=== PATIENT | male | born 1985 | race Caucasian/White ===

== ENCOUNTER 2019-08-02 13:06 | Inpatient (IN) | payer MEDICAID, SELFPAY ==
[2019-08-02] VITALS (14 sets, daily range): BP systolic 117–147; BP diastolic 59–80; PULSE 84–111; RESP 14–57; TEMP 37.1–39.2; O2SAT 90–98; BMI 32.5; BMI 32.6; BMI 32.2
--- NOTE | 2019-08-02 13:31 | EKG12_ITS ---
Test Reason : Blood Pressure : / mmHG Vent. Rate : 082 BPM Atrial Rate : 082 BPM P-R Int : 146 ms QRS Dur : 094 ms QT Int : 366 ms P-R-T Axes : 017 -08 031 degrees QTc Int : 427 ms Normal sinus rhythm Minimal voltage criteria for LVH, may be normal variant Borderline ECG Confirmed by COLIN ALLRED ([id number]), rewrite editor TASHA PITTS ([id number] on 08/06/2019 3:45:31 PM Referred By: TAYLOR Confirmed By:COLIN ALLRED
--- NOTE | 2019-08-02 13:35 | NURSING ---
NO OLD EKGS
[2019-08-02] MEDS: Ketorolac 30 MG/ML Syringe IV (13:45)
[2019-08-02] MEDS: 0.9% Normal Saline 1,000 ML 1000 ML IV (13:45)
[2019-08-02 13:54] LABS: Absolute Neutrophil Count 11.6 X10^3/uL (2.0-7.7); Basophil# 0.07 X10^3/uL; Basophil% 0.5 % (0-1); Eosinophil# 0.01 X10^3/uL; Eosinophils% 0.1 % (0-5); Hematocrit 40.5 % (40-54); Hemoglobin 13.3 g/dL (13.0-16.5); Mean Corp Hgb Conc 32.8 g/dL (32-36); Mean Corpuscular Hgb 30.1 pg (27.0-32.0); Mean Corpuscular Volume 91.6 fL (80-94); Mean Platelet Vol. 8.4 fl (6.2-12.0); Monocyte% 10.7 % (0-10); NRBC Flagged by Analyzer 0 % (0-5); Neutrophil % 77.7 % (47-70); POSITIVE DIFFERENTIAL YES; Platelet Count 428 K/mm3 (150-450); RBC Distribution Width CV 12.8 % (11.6-14.6); RBC Distribution Width SD 43.3 fl (35.1-43.9); Red Blood Count 4.42 M/mm3 (4.6-6.2); White Blood Count 14.9 K/mm3 (4.4-11.0)
[2019-08-02 13:56] LABS: Differential Indicated SCAN CRITERIA MET
--- NOTE | 2019-08-02 14:05 | RAD_ITS ---
STUDY: X-RAY CHEST REASON FOR EXAM: Male, 34 years old. SOB, COUGH, CHILLS, PAIN WITH COUGH X3 DAYS TECHNIQUE: PA and lateral views of the chest. COMPARISON: None. FINDINGS: Limited inspiratory effort. Increased markings at both lung bases suggestive of bibasilar atelectasis and possible infiltrate in the posterior medial segment of the left lower lobe. Follow-up is recommended. There is blunting of the left costophrenic angle. Normal size heart. Normal mediastinum and ciaran. Normal visualized pulmonary arteries. Normal visualized aortic arch and descending thoracic aorta. Normal visualized thoracic spine. Normal visualized ribs, clavicles, and shoulders. There is no demonstrated abnormality of the visualized soft tissue structures of the upper abdomen. RAD/Chest PA and Lateral IMPRESSION: Increased markings at the lung bases worse at the left lung base with the focal left lower lobe infiltrate in the posterior medial segment. Blunting of the left costophrenic angle. Follow-up is recommended. Electronically Signed: Maximo Pierre, at 14:23 EST , Service support ,
[2019-08-02 14:08] LABS: Anion Gap 6 (5-15); BUN 9 mg/dL (7-18); BUN/Creat Ratio 12.1 RATIO (10-20); Calcium,Total 9.3 mg/dL (8.5-10.1); Chloride 103 mmol/L (98-107); Creatinine, Serum 0.74 mg/dL (0.70-1.30); EST Glomerular Filtration Rate 130 mL/min (>60); Est Glom Filt Rate - Afr Amer 157 mL/min (>60); Estimated Creatinine Clearance 147.97 ml/min; Glucose 106 mg/dL (74-106); Potassium 3.9 mmol/L (3.5-5.1); Sodium Level 137 mmol/L (136-145)
--- NOTE | 2019-08-02 14:08 | ED.VIS.GEN ---
History of Present Illness Chief Complaint: Shortness of Breath Informant: Patient Narrative: Patient presents the emergency room with right upper back pain and shortness of breath. His mom tells me that she saw him on Tuesday and felt that he looked ill. He states that he has had some pain in his chest that seems to move around from the left upper chest to the right upper chest and is now currently in the right posterior upper thorax. He has had some of cough. He feels short of breath because he cannot take a deep breath in. He notes chills. He has not taken his temperature. He is also not taken anything to mask a fever. No rashes. No vomiting or diarrhea. He does however state that he does not feel much like eating today and appears to be a poor historian is difficult to elucidate out a specific timeline of events/illness. Past Medical History - Allergies and Home Meds Allergies/Adverse Reactions: Allergies No Known Allergies Allergy (Verified 08/02/19 13:07) Smoking Status: Current every day smoker Review of Systems General: Reports: Chills, Malaise. Denies: Fever, Sweats Eyes: Denies: Visual changes - bilaterally, Diplopia ENT: Denies: Left ear pain, Right ear pain, Rhinorrhea, Sore throat Cardiovascular: Reports: Chest pain. Denies: Palpitations Respiratory: Reports: Dyspnea, Cough. Denies: Dyspnea on exertion Gastrointestinal: Denies: Abdominal pain, Nausea, Vomiting, Diarrhea, Melena, Hematochezia Genitourinary: Denies: Dysuria, Hematuria, Frequency Musculoskeletal: Reports: Back pain. Denies: Extremity Pain Skin: Denies: Rash, Wounds Neurological: Denies: Headache, Weakness, Numbness Physical Exam Vital Signs/Narrative: Vital Signs Temp Pulse Resp BP Pulse Ox 08/02/19 13:21 88 30 H 97 08/02/19 13:07 98.7 F 89 19 H 147/74 H 97 Inital Vital Signs reviewed: Yes General: Well nourished, Well developed, Unkempt, No Acute Distress Head: Normocephalic, Atraumatic Eyes: Perrl, EOMI ENT: Moist mucous membranes, Nasal congestion Neck: Supple, Nontender Cardiovascular: Regular rate, Regular rhythm, No murmurs Respiratory: No distress, CTA bilaterally, Chest nontender, - - Patient is breathing shallow and slightly fast but is not in distress Abdomen: Soft, Nontender, Nondistended, Normal bowel sounds Back: Normal Inspection, - - Tender to palpation in the upper right posterior ribs Extremities: Nontender, No edema Skin: Normal color, No rash Neurological: Alert, Oriented x3, Cranial nerves II-XII grossly intact, Normal Strength, Normal Sensation Psychological: - - Patient has a blunted affect Diagnostic/Tx/Re-eval - Rhythm Strip Rhythm Strip: Sinus Rhythm Rate: 96 Ectopy: PAC(s) - Medical Decision Making The vancomycin based on patient's white count was 14.5. EKG is a sinus rhythm at a rate of 82. Lactic acid was normal. Troponin negative. Chest x-ray is concerning for infiltrate. Based on his symptoms is concerned possibly about a pulmonary embolism. CT angios the chest was obtained which demonstrates bilateral pulmonary embolisms and bilateral pneumonia. Patient received additional fluids breathing treatment Toradol morphine Rocephin azithromycin and Eliquis. Her plan is admission to the hospital ED Disposition - Plan for ED Patient: Disposition: Acute Care Hospital [facility] Diagnosis: Bilateral pneumonia, Bilateral pulmonary embolism
--- NOTE | 2019-08-02 14:26 | CT_ITS ---
STUDY: CTA CHEST REASON FOR EXAM: Male, 34 years old. SHORT OF BREATH,COUGH,CHILLS,PAIN W/ COUGH RADIATION DOSAGE (If Supplied By Facility): CTDIvol = ( 14.98 ) mGy, DLP = ( 400.12 ) mGycm TECHNIQUE: The examination was performed with the intravenous administration of 100CC ISOVUE 370. Post-processing of the angiographic images was performed, with multiplanar reformation and 3D reconstruction. Individualized dose optimization techniques were used for this CT. COMPARISON: Comparison is made with prior chest radiograph done earlier in the day. FINDINGS: Intraluminal filling defects are seen in branches of the right and left upper lobe pulmonary arteries more prominent on the right side. This is in keeping with bilateral pulmonary emboli. Normal thoracic aorta and visualized great vessels. There is no demonstrated aortic dissection. Normal heart and pericardium. Normal mediastinum. Mildly enlarged right hilar lymph nodes. Normal visualized trachea and bronchi. The lungs are well expanded. Minimal bilateral pleural effusions with bibasilar infiltrations more prominent on the left side. Normal pleura. Normal chest wall structures. Normal osseous structures. Normal visualized upper abdomen. CT/CTA Chest W/WO Contrast IMPRESSION: Bilateral upper lobe pulmonary arterial emboli more prominent on the right side. Bibasilar infiltrates more prominent on the left side. Electronically Signed: Maximo Pierre, at 15:28 EST , Service support ,
[2019-08-02] MEDS: Ceftriaxone 1 GM/50 ML BAG IV (15:48)
--- NOTE | 2019-08-02 15:53 | HP.PCM_ITS ---
History of Present Illness Date of Admission: 08/02/19 Chief Complaint: shortness of breath, chest pain The patient is a 34 year old M with no significant past medical history. He was admitted through the ED on 08/02/2019 with a complaint of shortness of breath and chest pain for 3 days prior to admission. Shortness of breath was mainly pleuritic and chest pain was worsened by breathing in and out. He denied any fever or chills and had a cough which was initially productive but was now dry. He is never had such chest pain before. He denied any nausea vomiting or diarrhea or any history of long distance travel or history of PE. He denied any history of respiratory symptoms. In the ED, vitals were significant for respiratory rate of 24 with temperature of 99.5 Fahrenheit, pulse rate of 96 and blood pressure of 121/77. Chemistry was unremarkable initial troponin was negative. CBC showed WBC of 14.9 and hemoglobin of 13.3. CT of the chest done in the ED showed bilateral upper lobe pulmonary arterial emboli more prominent on the right side and bibasilar infiltrates more right than on the left. Chest x-ray done just showed increased markings of the lung base worse at the left lung base than the right with a focal left lower lobe infiltrate in the posterior medial segment. He has been admitted to be managed for community- acquired pneumonia and bilateral PE. On closer questioning of patient and his mother, mother stated that she had 2 spontaneous early abortions when she was younger. Her sister and niece also had early spontaneous abortions. Mother also stated that patient's maternal grandmother, and maternal aunts had DVTs and PEs which they thought then were due to cancer. [] Past Medical History Allergies No Known Allergies Allergy (Verified 08/02/19 13:07) Home Medications: Ambulatory Orders Medication Instructions Recorded NK 08/02/19 Surgical History: no surgical history Psychiatric History: No pertinent psych hx Lives: Alone Smoking Status: Current every day smoker Alcohol: None Drugs: None - *Family History Maternal History Items: DVT, - - history of spontaneous abortions in mother, aunt and cousin Review of Systems Constitutional: Reports: Malaise, Weakness, Fatigue. Denies: Chills, Fever, Weight Change Eyes: Denies: Blurred vision HEENT: Denies: Head Aches, Sinus Congestion, Sinus Drainage Cardiovascular: Reports: Chest Pain - pleuritic. Denies: Chest Pressure, Chest Tightness, Edema, Heaviness, Light Headedness, Orthopnea, Palpitations, Paroxysmal Noc. Dyspnea Respiratory: Reports: Cough, Pleuritic Pain, Shortness of Breath, Shortness of breath at rest, Shortness of breath upon exertion. Denies: Sputum production, Wheezing Gastrointestinal: Denies: Abdominal Pain, Nausea, Vomiting Genitourinary: Denies: Dysuria Musculoskeletal: Denies: Joint Pain, Joint Tenderness Skin: Denies: Rash, Wounds Neurological: Denies: Numbness, Tingling, Focal weakness Psychiatric: Denies: Anxiety, Depression, Homicidal Ideations, Suicidal Ideations Hematologic/ Lymphatic: Denies: Easy Bruising, Easy Bleeding VTE Information - Inpt Only VTE Present on Admission: Yes Patient Problems: Active and Suspected Problems Bilateral pneumonia (Acute) Bilateral pulmonary embolism (Acute) - Physical Exam Vitals/I&O's: Vital Signs Temp Pulse Resp BP Pulse Ox 99.5 F H 85 18 121/77 H 98 08/02/19 15:25 08/02/19 15:25 08/02/19 15:25 08/02/19 15:25 08/02/19 15:25 Oxygen Delivery Method Room Air Weight: 226 lb 13.69 oz Body Mass Index (BMI) 32.5 Intake and Output for Last 24 Hours 07/31/19 08/01/19 08/02/19 23:59 23:59 23:59 Intake Total 1000 / 1000 Balance 1000 / 1000 General: Alert, Oriented x3, Cooperative, No apparent distress, Lethargic HEENT: Atraumatic, PERRLA, EOMI, Normocephalic Oral: Moist Mucosa Neck: Supple, No JVD, Negative Carotid Bruits Lungs: Short of Breath, Tachypneic, - - moderately decreased breath sounds bibasally, no wheezes or crackles. on room air Cardiovascular: Regular rate, Regular Rhythm, Normal S1, Normal S2, No murmurs Abdomen: Bowel Sounds Present, Soft, Non Tender Extremities: No clubbing, No cyanosis, No edema, Capillary Refill Less than 3 Seconds Skin: No rashes, No breakdown Musculoskeletal: No Tenderness to Palpation of Joints or Extremities Lymphatic: No Cervical, Supraclavicular, or Inguinal Adenopathy Neurological: Cranial nerves II-XII grossly intact, Neuro grossly intact, Motor Exam 5/5 strength throughout Psych/Mental Status: Normal Affect, Appropriate, Alert and oriented to time, place, person, mood and affect Microbiology Past 72 Hours 08/02/19 13:40 Mucosa - Nose Influenza Types A,B Direct FA ([facility]) - Final Laboratory Results 08/02/19 13:45: WBC 14.9 H, RBC 4.42 L, Hgb 13.3, Hct 40.5, MCV 91.6, MCH 30.1, MCHC 32.8, RDW Std Deviation 43.3, RDW Coeff of Fadi 12.8, Plt Count 428, MPV 8.4, Immature Gran % (Auto) 1.000 H, Neut % (Auto) 77.7 H, Lymph % (Auto) 10.0 L , Richardson % (Auto) 10.7 H, Eos % (Auto) 0.1, Baso % (Auto) 0.5, Absolute Neuts (auto) 11.6 H, Absolute Lymphs (auto) 1.50, Nucleated RBC % 0, Diff Path Review October08/02/19 13:45: Sodium 137, Potassium 3.9, Chloride 103, Carbon Dioxide 28.0, Anion Gap 6, BUN 9, Creatinine 0.74, Estim Creat Clear Calc 147.97, Est GFR (MDRD) Af Amer 157, Est GFR (MDRD) Non-Af 130, BUN/Creatinine Ratio 12.1, Glucose 106, Calcium 9.3, Troponin I < 0.015 Diagnostic Data Chest X-Ray 08/02/19 14:05 IMPRESSION: Increased markings at the lung bases worse at the left lung base with the focal left lower lobe infiltrate in the posterior medial segment. Blunting of the left costophrenic angle. Follow-up is recommended. Electronically Signed: Maximo Pierre, at 14:23 EST , Service support , Chest CTA 08/02/19 14:26 IMPRESSION: Bilateral upper lobe pulmonary arterial emboli more prominent on the right side. Bibasilar infiltrates more prominent on the left side. Electronically Signed: Maximo Pierre, at 15:28 EST , Service support , Current Medications Azithromycin 500 mg/ Dextrose 255 mls @ 250 mls/hr IV X1 ONE Stop: 08/02/19 16:30 Ceftriaxone Sodium (Rocephin) 1 gm in 50 mls @ 100 mls/hr IV X1 ONE Stop: 08/02/19 15:58 Last Admin: 08/02/19 15:48 Dose: 100 mls/hr Documented by: Sodium Chloride () 1,000 mls @ 150 mls/hr IV .[id number] [facility] Assessment/Plan All Active Problems Bilateral pneumonia (Acute) Bilateral pulmonary embolism (Acute) 34 y/o admitted with a complaint of shortness of breath and pleuritic chest pain 1. Bilateral PE * Chest CT showed bilateral upper lobe PE more prominent on the right side with bibasilar infiltrates more prominent on the left. * Family on his mother's side has a history of early spontaneous abortions and DVTs and PEs. There likely may be a genetic component to his PE as well and he will benefit from hypercoagulable work-up after treatment for this PE. * Admits to PCU with telemetry * Breathing treatments with DuoNeb's. Titrate oxygen to maintain saturation above 90%. * Start on p.o. Eliquis. * Will not do any duplex of the lower extremities as it would not change the management. * 2. Sepsis due to community-acquired pneumonia * CTA as under 1 and chest x-ray also showed left lower lobe infiltrate. SIRS criteria is 2/4 namely tachypnea and leukocytosis, though tachypnea can be explained by acute PE as well. * Has a mild fever of 99.5 Fahrenheit * hydrate gently with IVF NS 125cc/hr * check urine for strep adn legionella antigen * start IV ceftriaxone and azithromycin * DVT prophylaxis; not warranted as he has been started on eliquis for bilateral PE Code Visit Inpatient E&M: 73516 Init Hosp L3
[2019-08-02] MEDS: Ipratropium/Albuterol Sulfate 3 ML AMPUL.NEB INHALATION ×3 (15:57→23:48)
[2019-08-02] MEDS: Albuterol 2.5 MG/3 ML VIAL.NEB. INHALATION ×2 (15:57→21:24)
[2019-08-02] MEDS: Morphine 4 MG/ML Syringe IV ×2 (16:05→19:06)
[2019-08-02] MEDS: Ondansetron 4 MG/2 ML Vial IV (16:05)
[2019-08-02] MEDS: 0.9% Normal Saline 1,000 ML 150 ML IV ×2 (16:06→23:00)
[2019-08-02] MEDS: APIXABAN 5 MG TABLET 10 MG PO ×2 (16:22→23:01)
[2019-08-02 16:23] LABS: AST(SGOT) 42 U/L (15-37); Alanine Aminotransfer ALT/SGPT 207 U/L (16-61); Albumin, Serum 3.4 g/dL (3.2-5.0); Alkaline Phosphatase 142 U/L (45-117); Bilirubin, Direct 0.19 mg/dL (0.00-0.30); Globulin 4.5 g/dL (2.2-4.2); Protein, Total 7.9 g/dL (6.4-8.2)
[2019-08-02 16:27] LABS: Lactic Acid 1.8 mmol/L (0.4-1.9)
[2019-08-02] MEDS: LORazepam 0.5 MG Tablet PO (20:29)
[2019-08-02] MEDS: oxyCODONE 5 MG Tablet PO (23:00)
--- NOTE | 2019-08-02 23:49 | NURSING ---
This RN spoke to patient parents privately. They state pt is homeless. States he goes days without food at times. Parents also mention depression. This RN offered emotional support to parents and spoke about the possibility of involving case management and/or social work.
[2019-08-03] VITALS (27 sets, daily range): BP systolic 115–154; BP diastolic 64–83; PULSE 85–121; RESP 18–40; TEMP 36.3–39.3; O2SAT 94–98
[2019-08-03] MEDS: Acetaminophen 325 MG Tablet 650 MG PO (00:26)
[2019-08-03] MEDS: Morphine 4 MG/ML Syringe IV ×10 (00:27→23:53)
[2019-08-03] MEDS: Ipratropium/Albuterol Sulfate 3 ML AMPUL.NEB INHALATION ×5 (03:42→23:15)
[2019-08-03 05:20] LABS: Absolute Lymphocyte Count 2.31 X10^3/uL (0.83-4.51); Absolute Neutrophil Count 9.6 X10^3/uL (2.0-7.7); Basophil# 0.03 X10^3/uL; Basophil% 0.2 % (0-1); Eosinophil# 0.01 X10^3/uL; Eosinophils% 0.1 % (0-5); Hematocrit 35.3 % (40-54); Hemoglobin 11.3 g/dL (13.0-16.5); Lymphocyte # 2.31 X10^3/ul (4.0); Lymphocyte % 16.7 % (19-41); Mean Corpuscular Hgb 29.8 pg (27.0-32.0); Mean Corpuscular Volume 93.1 fL (80-94); Mean Platelet Vol. 8.2 fl (6.2-12.0); Monocyte# 1.73 X10^3/uL; Monocyte% 12.5 % (0-10); NRBC Flagged by Analyzer 0 % (0-5); Neutrophil # 9.62 X10^3/uL (2.7-7.7); Neutrophil % 69.7 % (47-70); POSITIVE DIFFERENTIAL YES; Platelet Count 378 K/mm3 (150-450); RBC Distribution Width SD 44.2 fl (35.1-43.9); Red Blood Count 3.79 M/mm3 (4.6-6.2); White Blood Count 13.8 K/mm3 (4.4-11.0)
[2019-08-03 05:26] LABS: Differential Indicated SCAN CRITERIA MET
[2019-08-03 05:36] LABS: Anion Gap 5 (5-15); BUN 11 mg/dL (7-18); BUN/Creat Ratio 15.4 RATIO (10-20); Calcium,Total 8.8 mg/dL (8.5-10.1); Chloride 108 mmol/L (98-107); Creatinine, Serum 0.72 mg/dL (0.70-1.30); EST Glomerular Filtration Rate 136 mL/min (>60); Est Glom Filt Rate - Afr Amer 164 mL/min (>60); Estimated Creatinine Clearance 152.08 ml/min; Glucose 113 mg/dL (74-106); Potassium 4.1 mmol/L (3.5-5.1); Sodium Level 139 mmol/L (136-145)
[2019-08-03 05:52] LABS: Platelet Estimate ADEQUATE (ADEQ)
[2019-08-03 05:53] LABS: Red Cell Morphology NORM C+C NORMAL (NORM C&C)
[2019-08-03] MEDS: 0.9% Normal Saline 1,000 ML 150 ML IV (06:09)
--- NOTE | 2019-08-03 07:45 | NURSING ---
Around 07:30, pt bladder scanned for 423 mL.
[2019-08-03 08:05] LABS: Allen Test POS; Base Excess 0 mmol/L (-2 to +2); Bicarbonate 24.5 mmol/L (22-26); O2 Delivery Device Nasal Can; PO2 45 mmHG (75-100); SITE R Radial; SO2 80 % (95-99); Time Given 800; Total Carbon Dioxide 26 mmol/L; pCO2 40.2 mmHg (35-45); pH 7.39 (7.35-7.45)
[2019-08-03 08:52] LABS: Blood Gas Specimen Type VEN
[2019-08-03 09:18] LABS: Pathologist Review Reviewed
[2019-08-03 09:20] LABS: Pathologist Review Reviewed
[2019-08-03] MEDS: APIXABAN 5 MG TABLET 10 MG PO ×2 (10:20→21:41)
--- NOTE | 2019-08-03 11:09 | PN_ITS ---
Patient Problems: Active and Suspected Problems Bilateral pneumonia (Acute) Bilateral pulmonary embolism (Acute) Subjective: Patient seen and examined. He complains of shortness of breath, and says he thinks it is because of the chest pain, which is worsened by breathing in and out. He denies any nausea, vomiting, fever and chills, diarrhea or vomiting. Review of systems is otherwise negative. Labs and vitals reviewed. His respiratory rate is 36 but french translator resolved. He saturating well on 2 L of oxygen and even on room air his saturation is 90%. WBC is down to 13.8 today. Vitals/I&O's: Vital Signs Temp Pulse Resp BP Pulse Ox 97.4 F L 87 32 H 126/74 H 96 08/03/19 10:08 08/03/19 11:05 08/03/19 11:05 08/03/19 10:08 08/03/19 10:08 Oxygen Flow Rate (L/min) 2 Oxygen Delivery Method Nasal Cannula Weight: 224 lb 13.944 oz Body Mass Index (BMI) 32.2 Intake and Output for Last 24 Hours 08/01/19 08/02/19 08/03/19 23:59 23:59 23:59 Intake Total 2305 / 2305 1737.5 / 1737.5 Output Total 0 / 0 0 / 0 Balance 2305 / 2305 1737.5 / 1737.5 General: Alert, Oriented x3, Cooperative, No apparent distress, Lethargic HEENT: Atraumatic, PERRLA, EOMI, Normocephalic Oral: Moist Mucosa Neck: Supple, No JVD, Negative Carotid Bruits Lungs: Short of Breath, Tachypneic, - - moderately decreased breath sounds bibasally, saturating at 96% on 2L of oxygen Cardiovascular: Regular rate, Regular Rhythm, Normal S1, Normal S2, No murmurs Abdomen: Bowel Sounds Present, Soft, Non Tender Extremities: No clubbing, No cyanosis, No edema, Capillary Refill Less than 3 Seconds Skin: No rashes, No breakdown Musculoskeletal: No Tenderness to Palpation of Joints or Extremities Lymphatic: No Cervical, Supraclavicular, or Inguinal Adenopathy Neurological: Cranial nerves II-XII grossly intact, Neuro grossly intact, Motor Exam 5/5 strength throughout Psych/Mental Status: anxious Microbiology Past 72 Hours 08/03/19 09:50 Urine, Random Legionella Antigen - Final 08/03/19 09:50 Urine, Random Streptococcus pneumoniae Antigen (M - Final 08/02/19 20:53 Mucosa - Nasopharyngeal Respiratory Panel (PCR) - Final 08/02/19 13:40 Mucosa - Nose Influenza Types A,B Direct FA ([facility]) - Final Laboratory Results 08/02/19 13:45: WBC 14.9 H, RBC 4.42 L, Hgb 13.3, Hct 40.5, MCV 91.6, MCH 30.1, MCHC 32.8, RDW Std Deviation 43.3, RDW Coeff of Fadi 12.8, Plt Count 428, MPV 8.4, Immature Gran % (Auto) 1.000 H, Neut % (Auto) 77.7 H, Lymph % (Auto) 10.0 L , Sargent % (Auto) 10.7 H, Eos % (Auto) 0.1, Baso % (Auto) 0.5, Absolute Neuts (auto) 11.6 H, Absolute Lymphs (auto) 1.50, Nucleated RBC % 0, Diff Path Review Reviewed 08/02/19 13:45: Sodium 137, Potassium 3.9, Chloride 103, Carbon Dioxide 28.0, Anion Gap 6, BUN 9, Creatinine 0.74, Estim Creat Clear Calc 147.97, Est GFR (MDRD) Af Amer 157, Est GFR (MDRD) Non-Af 130, BUN/Creatinine Ratio 12.1, Glucose 106, Calcium 9.3, Troponin I < 0.015 08/02/19 13:45: Total Bilirubin 0.60, Direct Bilirubin 0.19, AST 42 H, ALT 207 H , Alkaline Phosphatase 142 H, Total Protein 7.9, Albumin 3.4, Globulin 4.5 H 08/02/19 15:42: Lactic Acid 1.8 08/03/19 04:55: WBC 13.8 H, RBC 3.79 L, Hgb 11.3 L, Hct 35.3 L, MCV 93.1, MCH 29.8, MCHC 32.0, RDW Std Deviation 44.2 H, RDW Coeff of Fadi 13.0, Plt Count 378, MPV 8.2, Immature Gran % (Auto) 0.800, Neut % (Auto) 69.7, Lymph % (Auto) 16.7 L , Sargent % (Auto) 12.5 H, Eos % (Auto) 0.1, Baso % (Auto) 0.2, Absolute Neuts ( auto) 9.6 H, Absolute Lymphs (auto) 2.31, Nucleated RBC % 0, Differential Comment COMMENT, Diff Path Review Reviewed, Platelet Estimate ADEQUATE, RBC Morphology NORM C+C 08/03/19 04:55: Sodium 139, Potassium 4.1, Chloride 108 H, Carbon Dioxide 26.0, Anion Gap 5, BUN 11, Creatinine 0.72, Estim Creat Clear Calc 152.08, Est GFR (MDRD) Af Amer 164, Est GFR (MDRD) Non-Af 136, BUN/Creatinine Ratio 15.4, Glucose 113 H, Calcium 8.8 08/03/19 08:01: Specimen Type SCOTTY, Sample Site R Radial, pH 7.39, Bicarbonate Actual 24.5, POC Total CO2 26, Base Excess 0, O2 Saturation 80 L, ABG pCO2 40.2, ABG pO2 45 L, Bernard Test POS, O2 Delivery Device Nasal Can, Liter Flow 3.0, Blood Gas Notified Whom ANTOLIN CELIS, Blood Gas Notified Time 800 Diagnostic Data Chest X-Ray 08/02/19 14:05 IMPRESSION: Increased markings at the lung bases worse at the left lung base with the focal left lower lobe infiltrate in the posterior medial segment. Blunting of the left costophrenic angle. Follow-up is recommended. Electronically Signed: Maximo Pierre, at 14:23 EST , Service support , Chest CTA 08/02/19 14:26 IMPRESSION: Bilateral upper lobe pulmonary arterial emboli more prominent on the right side. Bibasilar infiltrates more prominent on the left side. Electronically Signed: Maximo Pierre, at 15:28 EST , Service support , Current Medications Acetaminophen (Tylenol) 650 mg PO Q4H PRN PRN PRN Reason: fever, pain 1-10 Last Admin: 08/03/19 00:26 Dose: 650 mg Documented by: Albuterol Sulfate (Ventolin Aerosols) 2.5 mg INHALATION Q2H PRN PRN PRN Reason: dyspnea, wheezing Last Admin: 08/02/19 21:24 Dose: 2.5 mg Documented by: Albuterol/Ipratropium (Duoneb) 3 ml INHALATION Q4H.RT [facility] Last Admin: 08/03/19 07:27 Dose: 3 ml Documented by: Apixaban (Eliquis) 10 mg PO BID [facility] Stop: 08/09/19 10:01 Last Admin: 08/03/19 10:20 Dose: 10 mg Documented by: Fentanyl Citrate (Sublimaze (100mcg Ampule)) 25 mcg IV X1 ONE Stop: 08/03/19 11:01 Glucagon () 1 mg IM .X1 PRN PRN Reason: Hypoglycemia Ceftriaxone Sodium 2 gm/ (Sodium Chloride) 50 mls @ 100 mls/hr IV Q24 [facility] Stop: 08/10/19 10:01 Last Admin: 08/03/19 10:06 Dose: 100 mls/hr Documented by: Azithromycin 500 mg/ Dextrose 255 mls @ 250 mls/hr IV Q24 [facility] Stop: 08/08/19 10:01 Dextrose (Dextrose 10%-Water) 250 mls @ 999 mls/hr IV .Q16M PRN; Protocol PRN Reason: HYPOGLYCEMIA Ibuprofen (Motrin) 600 mg PO Q8H PRN PRN PRN Reason: fever, pain 1-10 Morphine Sulfate () 4 mg IV Q2H PRN PRN PRN Reason: Pain Score 6-10/10 Last Admin: 08/03/19 10:03 Dose: 4 mg Documented by: Nicotine (Nicoderm Cq (Pbkc)) 21 mg TRANSDERM. DAILY [facility] Last Admin: 08/03/19 10:13 Dose: Not Given Documented by: Ondansetron HCl (Zofran) 4 mg IV Q8H PRN PRN PRN Reason: NAUSEA/VOMITING Oxycodone HCl (Oxyir) 5 mg PO Q4H PRN PRN PRN Reason: Pain Score 6-10/10 Last Admin: 08/02/19 23:00 Dose: 5 mg Documented by: Sodium Chloride () 10 - 40 ml IV UD PRN PRN Reason: SALINE FLUSH STROKE Vital Signs/Narrative: Vital Signs Temp Pulse Resp BP Pulse Ox 08/03/19 11:05 87 32 H 08/03/19 10:08 97.4 F L 96 40 H 126/74 H 96 08/03/19 07:57 99.4 F H 94 36 H 123/66 H 96 08/03/19 07:28 97 18 95 Medical Necessity - Tobacco Use Smoking Status: Current every day smoker Tobacco Use: Cigarettes Assessment/Plan All Active Problems Bilateral pneumonia (Acute) Bilateral pulmonary embolism (Acute) 1. Bilateral PE * Chest CT showed bilateral upper lobe PE more prominent on the right side with bibasilar infiltrates more prominent on the left. * Family on his mother's side has a history of early spontaneous abortions and DVTs and PEs. There likely may be a genetic component to his PE as well and he will benefit from hypercoagulable work-up after treatment for this PE. * on PO eliquis. * will put on IV fentanyl as he is still having significant pleuritic chest pain not relieved by morphine. He is still tachypneic and on 2L of oxygen. I think he may have some lung infarct which is making pain worse. * Breathing treatments with DuoNeb's. Titrate oxygen to maintain saturation above 90%. * 2. Acute hypoxic respiratory insufficiency due to bilateral PE and pneumonia * as under 1. * 3. Sepsis due to community-acquired pneumonia * CTA as under 1 and chest x-ray also showed left lower lobe infiltrate. SIRS criteria is 2/4 namely tachypnea and leukocytosis, though tachypnea can be explained by acute PE as well. * Temperature peaked at 102.7 Fahrenheit in the early hours of this morning. * WBC is down to 13.8. Respiratory panel is negative and urine for strep and Legionella negative. Blood cultures pending. * on IV ceftriaxone and azithromycin. * * DVT prophylaxis; on eliquis for acute PE treatment Code Visit Inpatient E&M: 28654 Subs Hosp L3
--- NOTE | 2019-08-03 11:36 | CASEMGMT ---
Patient is self pay. [employer] spoke with patient's mom as it is difficult for patient to talk due to being short of breath. They gave patient's mom the toll free number for Medicaid. JOHNY spoke with patient's mom. Patient has been living out of his car in someone's driveway since last summer. He has never applied for Medicaid as he is stubborn. She rents a room from someone, but plans on taking patient home with her. She also recently began caring for patient's 9 year old son. Patient's son was with patient's ex, but she cannot care for him anymore. Patient's mom is working on getting custody of this 9 year old. Patient's mom plans on moving back to [facility] and getting a place with patient. JOHNY explained [facility] has a program where we can assist patient with d/c meds once a year. Patient will then need to follow up with a physician as an outpatient. She goes to [facility] for her medical care and is aware of the financial program they have. She plans on getting patient in at [facility] for follow up. JOHNY also gave her some information on assistance in [facility]. She thanked JOHNY for checking in with her regarding patient. Plan: [facility] prescription assistance program for d/c meds. Patient was given toll free number to sign up for Medicaid. His mom will help him follow up with [facility]. He will be going home with his mom at d/c. Tamar PORTILLO
[2019-08-03] MEDS: fentaNYL 100 MCG/2 ML Ampul 25 MCG IV (11:51)
--- NOTE | 2019-08-03 14:40 | CASEMGMT ---
[facility] Rx assist program to be utilized for pt at discharge. Per Dr. Nassar, pt to likely be discharged tomorrow. Rx assist form completed and tubed to pharmacy at this time. Call to Dileep at [facility] retail pharmacy and he is updated on all at this time, voices understanding. Dr Nassar is aware and that scripts need to be sent to [facility] retail pharmacy early d/t closing at 1300 on saturdays. Desmond OLIVEIRA CM
[2019-08-03] MEDS: 0.9% Saline Lock 10 ML Syringe IV ×2 (21:44→23:54)
[2019-08-04] VITALS (13 sets, daily range): BP systolic 115–137; BP diastolic 62–76; PULSE 76–100; RESP 20–30; TEMP 36.7–37.1; O2SAT 89–95
[2019-08-04] MEDS: 0.9% Saline Lock 10 ML Syringe IV ×5 (00:25→14:05)
[2019-08-04] MEDS: traZODone 50 MG Tablet PO (00:25)
[2019-08-04] MEDS: HYDROmorphone 1 MG/ML Syringe IV (00:25)
[2019-08-04] MEDS: Morphine 4 MG/ML Syringe IV ×5 (04:14→14:05)
[2019-08-04] MEDS: Ipratropium/Albuterol Sulfate 3 ML AMPUL.NEB INHALATION ×2 (06:52→10:43)
[2019-08-04 08:18] LABS: Absolute Lymphocyte Count 1.75 X10^3/uL (0.83-4.51); Absolute Neutrophil Count 8.3 X10^3/uL (2.0-7.7); Basophil# 0.03 X10^3/uL; Basophil% 0.3 % (0-1); Eosinophil# 0.07 X10^3/uL; Eosinophils% 0.6 % (0-5); Hematocrit 35.4 % (40-54); Hemoglobin 11.6 g/dL (13.0-16.5); Lymphocyte # 1.75 X10^3/ul (4.0); Lymphocyte % 14.7 % (19-41); Mean Corp Hgb Conc 32.8 g/dL (32-36); Mean Corpuscular Hgb 29.9 pg (27.0-32.0); Mean Corpuscular Volume 91.2 fL (80-94); Monocyte# 1.65 X10^3/uL; Monocyte% 13.9 % (0-10); NRBC Flagged by Analyzer 0 % (0-5); Neutrophil # 8.27 X10^3/uL (2.7-7.7); Neutrophil % 69.6 % (47-70); POSITIVE DIFFERENTIAL YES; Platelet Count 401 K/mm3 (150-450); RBC Distribution Width SD 42.7 fl (35.1-43.9); Red Blood Count 3.88 M/mm3 (4.6-6.2); White Blood Count 11.9 K/mm3 (4.4-11.0)
[2019-08-04 08:31] LABS: Anion Gap 3 (5-15); BUN 11 mg/dL (7-18); BUN/Creat Ratio 14.6 RATIO (10-20); Calcium,Total 9.6 mg/dL (8.5-10.1); Chloride 109 mmol/L (98-107); Creatinine, Serum 0.76 mg/dL (0.70-1.30); EST Glomerular Filtration Rate 127 mL/min (>60); Est Glom Filt Rate - Afr Amer 154 mL/min (>60); Estimated Creatinine Clearance 144.08 ml/min; Glucose 120 mg/dL (74-106); Potassium 4.1 mmol/L (3.5-5.1); Sodium Level 139 mmol/L (136-145)
[2019-08-04 08:44] LABS: Differential Indicated SCAN CRITERIA MET
[2019-08-04] MEDS: APIXABAN 5 MG TABLET 10 MG PO (10:38)
--- NOTE | 2019-08-04 14:27 | DCINST_ITS ---
- Discharge Diagnoses Current Active Problems: Current Active and Chronic Problems Bilateral pneumonia (Acute) Bilateral pulmonary embolism (Acute) You will use the following diet at home:: No restrictions Your food should be the consistency of: Regular Your liquids should be the consistency of: Regular/Thin Discharge Activity: Return to Normal Activity Call your doctor if you observe: Fever of 101 or Higher, Shortness of breath, Dizziness, Chest pain Instructions: Pulmonary Embolism, What Is Pneumonia?, Treating Pneumonia Allergies/Adverse Reactions: Allergies No Known Allergies Allergy (Verified 08/02/19 13:07) Medications to take at Discharge Apixaban [Eliquis] 10 mg PO BID #60 tab 08/04/19 levoFLOXacin tablet [Levaquin tablet] 750 mg PO DAILY #5 tab 08/04/19 The following prescriptions were given: Apixaban [Eliquis] 10 mg PO BID #60 tab Transmission Status: Received by [facility] levoFLOXacin tablet [Levaquin tablet] 750 mg PO DAILY #5 tab Transmission Status: Received by [facility] Primary Care Physician: Care Physician,No Primary [Primary Care Provider] - Test Results: Test results from this visit will be discussed in further detail at your follow- up appointment, if applicable. Please Follow Up With: Mary Jackson When: please [facility] to [facility] appointment Please Follow Up With: Forrest Osei MD When: in 4-6 weeks; will need follow up for hypercoagulability workup Proposed Discharge Date: 08/04/19
--- NOTE | 2019-08-04 14:33 | PCM.DC.SUM ---
Discharge Date and Diagnosis - Problem List Patient Problems: Active and Suspected Problems Bilateral pneumonia (Acute) Bilateral pulmonary embolism (Acute) Date of Admission: 08/02/19 Date of Discharge: 08/04/19 - Primary Discharge Diagnosis Active and Suspected Problems Bilateral pneumonia (Acute) Bilateral pulmonary embolism (Acute) Hospital Course and Treatment Imaging Results: Diagnostic Data Chest X-Ray 08/02/19 14:05 IMPRESSION: Increased markings at the lung bases worse at the left lung base with the focal left lower lobe infiltrate in the posterior medial segment. Blunting of the left costophrenic angle. Follow-up is recommended. Electronically Signed: Maximo Gabby, at 14:23 EST , Service support , Chest CTA 08/02/19 14:26 IMPRESSION: Bilateral upper lobe pulmonary arterial emboli more prominent on the right side. Bibasilar infiltrates more prominent on the left side. Electronically Signed: Maximo Gabby, at 15:28 EST , Service support , Operations: None Procedures: None Summary of Care Provided: The patient is a 34 year old M with no significant past medical history. He was admitted through the ED on 08/02/2019 with a complaint of shortness of breath and chest pain for 3 days prior to admission. Shortness of breath was mainly pleuritic and chest pain was worsened by breathing in and out. He denied any fever or chills and had a cough which was initially productive but was now dry. He is never had such chest pain before. He denied any nausea vomiting or diarrhea or any history of long distance travel or history of PE. He denied any history of respiratory symptoms. In the ED, vitals were significant for respiratory rate of 24 with temperature of 99.5 Fahrenheit, pulse rate of 96 and blood pressure of 121/77. Chemistry was unremarkable initial troponin was negative. CBC showed WBC of 14.9 and hemoglobin of 13.3. CT of the chest done in the ED showed bilateral upper lobe pulmonary arterial emboli more prominent on the right side and bibasilar infiltrates more right than on the left. Chest x-ray done just showed increased markings of the lung base worse at the left lung base than the right with a focal left lower lobe infiltrate in the posterior medial segment. He was admitted to be managed for community-acquired pneumonia and bilateral PE. On closer questioning of patient and his mother, mother stated that she had 2 spontaneous early abortions when she was younger. Her sister and niece also had early spontaneous abortions. Mother also stated that patient's maternal grandmother, and maternal aunts had DVTs and PEs which they thought then were due to cancer. He was admitted to be managed for pulmonary embolism and community-acquired pneumonia. He was started on p.o. Eliquis. He was also managed for acute hypoxic respiratory insufficiency due to pneumonia and PE. Oxygen was titrated to maintain a saturation of more than 90, and he was started on ceftriaxone and azithromycin. Stay was complicated by pleuritic chest pain which was not initially improved and was thought to be due to the PE and lung infarct as well as pneumonia. This gradually improved after he was put on fentanyl and he was weaned off of it. Patient remained stable and was weaned off of oxygen on 08/04/2019. BBC trended down to 11.9 from 14.9 on admission. Walking pulse ox was done and patient did not meet qualification for home oxygen. He was discharged home on 08/04/2019 with a prescription for p.o. Eliquis and also for p.o. levofloxacin for 5 days. Patient was counseled that considering his family history, his PE which was unprovoked was likely due to a hypercoagulable condition and he would need testing for this after he had completed the 3 to 6-month treatment for acute PE. He was referred to the [facility] and also referred to hematology upon discharge. Seen and examined prior to discharge. He felt much better than he did on admission. His breathing was much better and he denied any chest pain, nausea vomiting, palpitations, dizziness, abdominal pain or any other symptoms. Review of symptoms otherwise negative. Labs and vitals reviewed. Home medication reviewed and reconciled. O/E: Vital Signs Height 5 ft 10 in Weight: 224 lb 13.944 oz Weight in Pounds 224.9 lbs Pulse Ox [AMBULATING on Room 89 Air] Pulse Ox [At REST on Room Air] 93 Pulse Ox 92 Temperature 98.4 F Pulse Rate 76 Respiratory Rate 20 Blood Pressure [BP] 119/62 Blood Pressure 116/67 Blood Pressure Position [BP] Semi-Fowlers Blood Pressure Position Semi-Fowlers General: Alert, Oriented x3, Cooperative, No apparent distress, HEENT: Atraumatic, PERRLA, EOMI, Normocephalic Oral: Moist Mucosa Neck: Supple, No JVD, Negative Carotid Bruits Lungs: clear to auscultation, no wheezes or crackles. On room air Cardiovascular: Regular rate, Regular Rhythm, Normal S1, Normal S2, No murmurs Abdomen: Bowel Sounds Present, Soft, Non Tender Extremities: No clubbing, No cyanosis, No edema, Capillary Refill Less than 3 Seconds Skin: No rashes, No breakdown Musculoskeletal: No Tenderness to Palpation of Joints or Extremities Lymphatic: No Cervical, Supraclavicular, or Inguinal Adenopathy Neurological: Cranial nerves II-XII grossly intact, Neuro grossly intact, Motor Exam 5/5 strength throughout Psych/Mental Status: normal affect Patient Problems: Active and Suspected Problems Bilateral pneumonia (Acute) Bilateral pulmonary embolism (Acute) - Physical Exam Vitals/I&O's: Vital Signs Temp Pulse Resp BP Pulse Ox 98.4 F 76 20 H 119/62 93 08/04/19 10:30 08/04/19 14:03 08/04/19 14:03 08/04/19 14:03 08/04/19 14:16 Oxygen Flow Rate (L/min) [ 0 AMBULATING on Room Air] Oxygen Flow Rate (L/min) [At 0 REST on Room Air] Oxygen Flow Rate (L/min) 1 Oxygen Delivery Method Room Air Weight: 224 lb 13.944 oz Body Mass Index (BMI) 32.2 Intake and Output for Last 24 Hours 08/02/19 08/03/19 08/04/19 23:59 23:59 23:59 Intake Total 2305 / 2305 2162.5 / 2162.5 845 / 845 Output Total 0 / 0 0 / 0 Balance 2305 / 2305 2162.5 / 2162.5 845 / 845 Microbiology Past 72 Hours 08/03/19 09:50 Urine, Random Legionella Antigen - Final 08/03/19 09:50 Urine, Random Streptococcus pneumoniae Antigen (M - Final 08/02/19 20:53 Mucosa - Nasopharyngeal Respiratory Panel (PCR) - Final 08/02/19 13:40 Mucosa - Nose Influenza Types A,B Direct FA (GUY) - Final Laboratory Results 08/04/19 08:04: WBC 11.9 H, RBC 3.88 L, Hgb 11.6 L, Hct 35.4 L, MCV 91.2, MCH 29.9, MCHC 32.8, RDW Std Deviation 42.7, RDW Coeff of Fadi 13.0, Plt Count 401, MPV 8.0, Immature Gran % (Auto) 0.900, Neut % (Auto) 69.6, Lymph % (Auto) 14.7 L, [place] % (Auto) 13.9 H, Eos % (Auto) 0.6, Baso % (Auto) 0.3, Absolute Neuts (auto) 8.3 H, Absolute Lymphs (auto) 1.75, Nucleated RBC % 0, Diff Path Review October08/04/19 08:04: Sodium 139, Potassium 4.1, Chloride 109 H, Carbon Dioxide 27.0, Anion Gap 3 L, BUN 11, Creatinine 0.76, Estim Creat Clear Calc 144.08, Est GFR (MDRD) Af Amer 154, Est GFR (MDRD) Non-Af 127, BUN/Creatinine Ratio 14.6, Glucose 120 H, Calcium 9.6 Current Medications Acetaminophen (Tylenol) 650 mg PO Q4H PRN PRN PRN Reason: fever, pain 1-10 Last Admin: 08/03/19 00:26 Dose: 650 mg Documented by: Albuterol Sulfate (Ventolin Aerosols) 2.5 mg INHALATION Q2H PRN PRN PRN Reason: dyspnea, wheezing Last Admin: 08/02/19 21:24 Dose: 2.5 mg Documented by: Albuterol/Ipratropium (Duoneb) 3 ml INHALATION Q4H.RT DEVONTE Last Admin: 08/04/19 10:43 Dose: 3 ml Documented by: Apixaban (Eliquis) 10 mg PO BID DEVONTE Stop: 08/09/19 10:01 Last Admin: 08/04/19 10:38 Dose: 10 mg Documented by: Glucagon () 1 mg IM .X1 PRN PRN Reason: Hypoglycemia Ceftriaxone Sodium 2 gm/ (Sodium Chloride) 50 mls @ 100 mls/hr IV Q24 DEVONTE Stop: 08/10/19 10:01 Last Infusion: 08/04/19 11:33 Dose: Infused Documented by: Azithromycin 500 mg/ Dextrose 255 mls @ 250 mls/hr IV Q24 [facility] Stop: 08/08/19 10:01 Last Infusion: 08/04/19 13:12 Dose: Infused Documented by: Dextrose (Dextrose 10%-Water) 250 mls @ 999 mls/hr IV .Q16M PRN; Protocol PRN Reason: HYPOGLYCEMIA Ibuprofen (Motrin) 600 mg PO Q8H PRN PRN PRN Reason: fever, pain 1-10 Morphine Sulfate () 4 mg IV Q2H PRN PRN PRN Reason: Pain Score 6-10/10 Last Admin: 08/04/19 14:05 Dose: 4 mg Documented by: Nicotine (Nicoderm Cq (Pbkc)) 21 mg TRANSDERM. DAILY [facility] Last Admin: 08/04/19 10:39 Dose: Not Given Documented by: Ondansetron HCl (Zofran) 4 mg IV Q8H PRN PRN PRN Reason: NAUSEA/VOMITING Oxycodone HCl (Oxyir) 5 mg PO Q4H PRN PRN PRN Reason: Pain Score 6-10/10 Last Admin: 08/02/19 23:00 Dose: 5 mg Documented by: Sodium Chloride () 10 - 40 ml IV UD PRN PRN Reason: SALINE FLUSH Last Admin: 08/04/19 14:05 Dose: 20 ml Documented by: Trazodone HCl (Desyrel) 50 mg PO QHS PRN PRN PRN Reason: INSOMNIA Last Admin: 08/04/19 00:25 Dose: 50 mg Documented by: Discharge Diet: No Restrictions Discharge Activity: Return to Normal Activity Weight Bearing Status: Weight bearing as tolerated Call your doctor if you observe: Fever of 101 or Higher, Shortness of breath, Dizziness, Chest pain Home Medications: Medications to take at Discharge Apixaban [Eliquis] 10 mg PO BID #60 tab 08/04/19 levoFLOXacin tablet [Levaquin tablet] 750 mg PO DAILY #5 tab 08/04/19 Following Prescrptions Were Given to Patient: Apixaban [Eliquis] 10 mg PO BID #60 tab Transmission Status: Received by [facility] levoFLOXacin tablet [Levaquin tablet] 750 mg PO DAILY #5 tab Transmission Status: Received by [facility] Primary Care Physician: Care Physician,No Primary [Primary Care Provider] - Please Follow Up With: Mary Jackson When: [facility] Please Follow Up With: Forrest Osei MD When: in 4-6 weeks; will need follow up for hypercoagulability workup Patient Instructions: Pulmonary Embolism, What Is Pneumonia?, Treating Pneumonia Disposition: Home Minutes spent on discharge:: 45 Medical Necessity - Tobacco Use Smoking Status: Current every day smoker Tobacco Use: Cigarettes Meaningful Use Info Meaningful Use Diagnoses (Choose all that apply): VTE - VTE Anticoag overlap given w/in hospital stay or rx'd at dc?: Yes Pt receive overlap for 5 days?: Yes Code Visit Inpatient E&M: 34757 Disch Hosp
--- NOTE | 2019-08-04 14:39 | PCA ---
List of area PCPs provided to patient with discharge paperwork.
[2019-08-06 14:35] LABS: Pathologist Review Reviewed
== END 2019-08-04 16:03 | disposition home or self-care (01) | DRG 871 ==
LOC: ED 15:56 → PCU 16:31
PROVIDERS: Admitting Provider Student in an Organized Health Care Education/Training Program; Emergency Provider Emergency Medicine; Visit Provider Student in an Organized Health Care Education/Training Program
DX: A41.9 Sepsis, unspecified organism (principal); J18.9 Pneumonia, unspecified organism; I26.99 Other pulmonary embolism without acute cor pulmonale; F17.210 Nicotine dependence, cigarettes, uncomplicated; R09.02 Hypoxemia; R06.89 Other abnormalities of breathing
CPT/HCPCS: 36415; 36600; 71046; 71275; 80048; 80076; 82803; 83605; 84484; 85025; 87040; 87449; 87633; 87804; 93005; 94640; 99282; 99406; J7030; J7050; Q9967; A4216; J0696; J2405